=== PATIENT | male | born 1975 | race Caucasian/White ===

== ENCOUNTER 2018-07-06 09:59 | Emergency (ER) | payer MEDICARE ==
[2018-07-06 10:12] VITALS: BP 128/96; PULSE 90; O2SAT 99
--- NOTE | 2018-07-06 10:58 | ERPHSYRPT ---
- History of Present Illness Time Seen by Provider: 07/06/18 10:51 Source: patient Exam Limitations: no limitations Patient Subjective Stated Complaint: Got 3 teeth pulled on 07/02/2018 on the bottom back left and feels as if he has a bone sticking out Triage Nursing Assessment: Pt c/o of left lower mouth pain due to having 3 teeth pulled on 07/02/2018 and feels as if a bone is sticking out, vitals wnl, pulses normal, denies N&V, took Naproxen 500 mg this am, no other issues at this time Physician History: The patient is a 42-year-old male with his mother complaining of left lower jaw pain after having 3 teeth pulled from that area on 07/01/18. He took a naproxen this morning and is feeling better. He denies numbness or tingling. He denies fever. Timing/Duration: gradual onset, days (3) Severity: moderate ENT Location: dental Prearrival Treatment: over the counter meds Associated Symptoms: tooth pain, No fever, No chills Allergies/Adverse Reactions: No Known Drug Allergies Allergy (Verified 07/06/18 10:13) Home Medications: No Reportable Medications [No Reported Medications] 07/06/18 [History] Hx Tetanus, Diphtheria Vaccination/Date Given: Yes (PT STATES "BEEN AWHILE") Hx Influenza Vaccination/Date Given: No Hx Pneumococcal Vaccination/Date Given: No - Review of Systems Constitutional: No Fever, No Chills Eyes: No Symptoms Ears, Nose, & Throat: Other (tooth pain) Respiratory: No Cough, No Dyspnea Cardiac: No Chest Pain, No Edema, No Syncope Abdominal/Gastrointestinal: No Abdominal Pain, No Nausea, No Vomiting, No Diarrhea Genitourinary Symptoms: No Dysuria Musculoskeletal: No Back Pain, No Neck Pain Skin: No Rash Neurological: No Dizziness, No Focal Weakness, No Sensory Changes Psychological: No Symptoms Endocrine: No Symptoms Hematologic/Lymphatic: No Symptoms Immunological/Allergic: No Symptoms All Other Systems: Reviewed and Negative - Past Medical History Pertinent Past Medical History: Yes Musculoskeletal History: Other Other Medical History: "BAD BACK", 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 - Past Surgical History Past Surgical History: Yes Other Surgical History: bladder was on outside of body at several operations to this - Social History Smoking Status: Current every day smoker How long have you smoked: 30 Exposure to second hand smoke: Yes Drug Use: none Patient Lives Alone: No - Nursing Vital Signs Nursing Vital Signs: Initial Vital Signs Temperature 97.9 F 07/06/18 10:03 Pulse Rate 90 07/06/18 10:03 Blood Pressure 128/96 07/06/18 10:03 O2 Sat by Pulse Oximetry 99 07/06/18 10:03 Pain Scale Pain Intensity 8 - Physical Exam General Appearance: no apparent distress, alert Eye Exam: bilateral eye: PERRL, EOMI Ear Exam: bilateral ear: auricle normal Nasal Exam: normal inspection Throat Exam: dental tenderness (There is a surgical wound over the posterior lower mandible consistent with having 3 teeth recently extracted. There is bone exposed in the middle portion of the wound. There is mild tenderness to palpation.) Neck Exam: supple Cardiovascular/Respiratory Exam: normal breath sounds, regular rate/rhythm Abdominal Exam: non-tender, soft Neurologic Exam: alert, oriented x 3, sensation nml, No motor deficits Skin Exam: normal color, warm, dry SpO2 Interpretation: normal SpO2: 99 Oxygen Delivery: Room Air - Progress Progress: unchanged Progress Note: 07/06/18 11:01 I discussed with the patient the options that included giving a Toradol 60 mg IM injection and being sent home with 2 [place] tablets. I discussed with him that we did not have any clove oil or any analgesic gel to place into the dry socket. The patient adamantly refused the Toradol injection. He states that he will take the 2 [place] and use them later and will not come back today. He will see a dentist tomorrow. I also discussed with him that we tried to find treatment at other local ERs and were unable to. Counseled pt/family regarding: diagnosis, need for follow-up - Departure Time of Disposition: 11:03 Departure Disposition: Home Clinical Impression: Dry socket Condition: Stable Critical Care Time: No Referrals: DOCTOR,NO FAMILY [Primary Care Provider] - Additional Instructions: You have a dry socket from a recent extraction of teeth. You were offered a Toradol 60 mg IM injection and you've declined. You were given [place] 2 tablets the used one every 4-6 hours. We do not have the usual treatment for dry socket which includes clove oil. There is a 24 hour dentist open in [place] at [place], [address] Phone number [phone]. There is a 24 hour [facility] open on [address] [facility] in [place]. The phone number is . Follow-up with your dentist tomorrow area
[2018-07-06] MEDS ORDERED: NORCO 5/325 MG ONE (11:02)
[2018-07-06] MEDS ORDERED: NORCO 5/325 MG PO ONE (11:05)
== END 2018-07-06 11:15 | disposition home or self-care (01) ==
LOC: ED 09:59
DX: M27.3 Alveolitis of jaws (principal); Z98.818 Other dental procedure status
CPT/HCPCS: 99283; A9270-GY

== ENCOUNTER 2018-08-02 20:53 | Observation (INO) | payer MEDICARE ==
[2018-08-02] MEDS ORDERED: ANTIVERT 25 MG PO ONE (21:11)
[2018-08-02] MEDS ORDERED: Transderm Scop 1.5MG Patch TOP ONE (21:11)
[2018-08-02] MEDS ORDERED: BENADRYL 50 MG/ML IV ONE (21:14)
[2018-08-02] MEDS ORDERED: ANTIVERT 25 MG ONE (21:16)
[2018-08-02] MEDS ORDERED: BENADRYL 50 MG/ML ONE (21:23)
[2018-08-02] MEDS ORDERED: Sodium Chloride 0.9% 100 ML IVPB 100 ML IV ONE (21:30)
[2018-08-02 21:33] LABS: BASOPHIL % 0.4 % (0.0-0.4); Basophil (Absolute #) 0.04 (0-0.4); Eosinophil % 2.1 % (0.00-5.0); Eosinophil (Absolute #) 0.23 (0-0.5); Granulocytes % 49.5 % (36.0-66.0); Hematocrit 48.1 % (42-50); Hemoglobin 16.2 gm/dl (12.5-18.0); Lymphocyte (Absolute #) 4.01 (1.0-4.6); Lymphocytes % 37.3 % (24.0-44.0); Mean Cell Volume 91.6 fl (78-100); Mean Corpuscular Hemoglobin 30.9 pg (26-32); Mean Corpuscular Hgb Concent. 33.7 g/dl (32-36); Monocyte (Absolute #) 1.15 (0.0-1.3); Monocytes % 10.7 % (0.0-12.0); Platelet Count 335 K/mm3 (150-450); Red Blood Count 5.25 M/mm3 (4.1-5.6); Red Cell Distribution Width 13.4 % (11.5-14.0); White Blood Count 10.8 K/mm3 (4.0-10.5)
[2018-08-02 21:50] LABS: ANION GAP 13.4 MEQ/L (5-15); BLOOD UREA NITROGEN 25 mg/dL (9-20); CHLORIDE 101 mmol/L (98-107); Calcium 9.8 mg/dL (8.4-10.2); Carbon Dioxide 29 mmol/L (22-30); Creatinine 1 0.96 mg/dL (0.66-1.25); Glucose 104 mg/dL (74-106); Potassium 4.8 mmol/L (3.5-5.1); SODIUM 139 mmol/L (137-145)
--- NOTE | 2018-08-02 21:50 | ERPHSYRPT ---
- History of Present Illness Time Seen by Provider: 08/02/18 21:04 Source: patient, family Exam Limitations: no limitations Patient Subjective Stated Complaint: pt reports dizziness at rest, reports this started today as he was sitting. pt reports double vision. Triage Nursing Assessment: pt is aox3, pupils perrl, pt speech is clear, pt answers questions appropriately, hand dado operator are strong and equal, no facial droop noted, afebrile, resps easy and non labored, radial pulses strong and equal, abd soft non tender, cap refill < 3 seconds, no edema noted, pt skin pink warm dry. Physician History: patient developed acute dizziness today after suddenly getting up to go to the bathroom; he took 3-4 steps and became dizzy and unable to ambulate without holding on; no AVILA; no N&V; no fever or chills; no past hx; no tinnitis; some blurred and double vision now; no trauma; room spins if moves his head ; worse flexing and extending neck then rotating left right but mild then; otherwise healthy; here with family; no memory or speech problems; no weakness Timing/Duration: today, constant, sudden Severity: severe Character of Deficits: vision problems (double vision), other (vertigo and unable to ambulate without help) Deficits: cannot walk (vertigo), off balance Baseline/Normal Cognition: alert oriented x 3 Baseline Gait: unable to walk (without assitance or holding on due to vertigo) Associated Symptoms: trouble walking, vision changes (double vision), No fever, No chills, No loss of consciousness, No nausea, No vomiting, No weakness, No numbness/tingling in legs/feet, No ringing in ears, No seizures, No slurred speech, No chest pain, No headache Allergies/Adverse Reactions: No Known Drug Allergies Allergy (Verified 08/02/18 21:09) Home Medications: No Reportable Medications [No Reported Medications] 07/06/18 [History] Hx Tetanus, Diphtheria Vaccination/Date Given: No Hx Influenza Vaccination/Date Given: No Hx Pneumococcal Vaccination/Date Given: No Immunizations Up to Date: Yes - Review of Systems Constitutional: No Symptoms Eyes: Vision Changes, Double Vision, No Eye Pain, No Eye Redness, No Itchy Ears, Nose, & Throat: Other (has long hx of difficulty swallowing at time- supposed to have esophagus dilated - hasnt done it), No Ear Pain, No Tinnitus, No Nose Discharge, No Throat Pain, No Hoarse Respiratory: No Cough, No Dyspnea, No Wheezing Cardiac: No Chest Pain, No Palpitations, No Syncope Abdominal/Gastrointestinal: No Abdominal Pain, No Nausea, No Vomiting, No Diarrhea Genitourinary Symptoms: No Dysuria, No Incontinence, No Urinary Retention, No Flank Pain Musculoskeletal: No Symptoms Skin: No Symptoms Neurological: Dizziness, Vertigo, No Focal Weakness, No Headache, No Paralysis, No Parasthesia, No Seizure, No Sensory Changes, No Speech Changes Psychological: No Symptoms Endocrine: No Symptoms Hematologic/Lymphatic: No Symptoms Immunological/Allergic: No Symptoms - Past Medical History Pertinent Past Medical History: Yes Musculoskeletal History: Other Other Medical History: "BAD BACK", 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 - Past Surgical History Past Surgical History: Yes Other Surgical History: bladder was on outside of body at several operations to this - Social History Smoking Status: Current every day smoker How long have you smoked: 30 Exposure to second hand smoke: Yes Alcohol Use: Socially Drug Use: none Patient Lives Alone: No Significant Family History: no pertinent family hx - Female History Hx Now: No - Nursing Vital Signs Nursing Vital Signs: Initial Vital Signs Temperature 97.8 F 08/02/18 20:58 Pulse Rate 84 08/02/18 20:58 Respiratory Rate 18 08/02/18 20:58 Blood Pressure 131/85 08/02/18 20:58 O2 Sat by Pulse Oximetry 98 08/02/18 20:58 Pain Scale Pain Intensity 0 - Ysabel Coma Scale Best Eye Response (Ysabel): (4) open spontaneously Best Verbal Response (Ysabel): (5) oriented Best Motor Response (Ysabel): (6) obeys commands Ysabel Total: 15 - Physical Exam General Appearance: mild distress, alert, anxiety Eye Exam: bilateral eye: normal inspection, PERRL, EOMI, vision changes (double vision), other (fundi benign; no papaledema noted) Ears, Nose, Throat Exam: TMs normal, pharynx normal, moist mucous membranes Neck Exam: normal inspection, non-tender, supple, full range of motion, other ( symptoms of vertigo exacerbated by A_P motion more then L-R rotation), No meningismus, No carotid bruit, No JVD Respiratory: normal breath sounds, lungs clear, airway intact, No chest tenderness, No respiratory distress, No crackles/rales, No rhonchi, No wheezing Cardiovascular: regular rate/rhythm, normal heart sounds, normal peripheral pulses, capillary refill <2 sec, No murmur, No edema Gastrointestinal: soft, normal bowel sounds, No tenderness, No guarding, No rebound, No organomegaly Rectal Exam: deferred Back Exam: normal inspection, normal range of motion, No CVA tenderness, No vertebral tenderness, No decreased range of motion, No muscle spasm, No point tenderness Extremity Exam: normal inspection, normal range of motion, No nikolas's sign, No pedal edema Peripheral Pulses: carotid (R): 4+, carotid (L): 4+, femoral (R): 4+, femoral (L ): 4+, dorsalis-pedis (R): 3+, dorsalis-pedis (L): 3+ Mental Status: alert, oriented x 3, cooperative, agitated system software developer Exam: normal hearing, normal speech, PERRL, abnormal eye position (slight dysconjugate at times; no nystagmus noted), tongue midline Coordination/Gait: normal finger to nose, negative Romberg's sign, No normal gait, No normal cerebellar function Motor/Sensory: no motor deficit, no sensory deficit, no pronator drift DTR: knee (R): 4+, knee (L): 4+ Skin Exam: normal color, warm, dry, No rash SpO2 Interpretation: normal SpO2: 98 O2 Delivery: Room Air - Course Nursing assessment & vital signs reviewed: Yes EKG Interpreted by Me: RATE (79), Sinus Rhythm, NORMAL AXIS, NORMAL INTERVALS, NORMAL QRS, NORMAL ST-T Rhythm Strip: Rate (80), Normal Sinus Rhythm - Radiology Exams Chest X-ray Interpretation: Interpreted by me, Negative, No Pneumonia, Nml Heart Size , No Infiltrates - CT Exams Head CT Interpretation: Negative, Tele-radiologist Report, No/Intracranial Hemorrhag Ordered Tests: Active Orders 24 hr Category Date Time Status Bedrest ROUTINE Activity 08/02/18 22:40 Ordered Up With Assistance ROUTINE Activity 08/02/18 22:38 Ordered Accucheck STAT Care 08/02/18 21:11 Active Call Admit Doctor for Orders ON ADMISSION Care 08/02/18 22:39 Ordered Production Sampler STAT Care 08/02/18 21:12 Active Code Status Order ROUTINE Care 08/02/18 22:38 Ordered EKG-ER Only STAT Care 08/02/18 21:11 Active Fall Protocol ROUTINE Care 08/02/18 22:40 Ordered IV Care Q6H Care 08/02/18 22:38 Ordered IV Insertion STAT Care 08/02/18 21:11 Active Neuro Checks Q4H Care 08/02/18 22:38 Ordered Orthostatic Vital Signs STAT Care 08/02/18 21:[address] in Observation ROUTINE Care 08/02/18 22:38 Ordered Cipriano Amadoue, Apply ROUTINE Care 08/02/18 22:38 Ordered Telemetry q6h Care 08/02/18 22:38 Ordered Cardiac Diet Diet 08/02/18 Breakfast Ordered CHEST 1 VIEW (PORTABLE) Stat Exams 08/02/18 21:12 Taken HEAD WITHOUT CONTRAST [CT] Stat Exams 08/02/18 21:12 Taken BMP Stat Lab 08/02/18 21:20 Completed CBC W DIFF Stat Lab 08/02/18 21:20 Completed ETHYL ALCOHOL Stat Lab 08/02/18 21:20 Completed UA W/RFX UR CULTURE Stat Lab 08/02/18 22:10 Received Urine Triage Profile Stat Lab 08/02/18 22:10 Received Transfer Order Routine Transfer 08/02/18 Ordered Medication Summary Generic Name Dose Route Start Last Admin Trade Name Freq PRN Reason Stop Dose Admin Sodium Chloride 1,000 mls @ 100 mls/hr 08/02/18 21:15 08/02/18 22:19 Sodium Chloride 0.9% 1000 Ml IV 09/01/18 21:14 100 mls/hr .Q10H [place] Administration Discontinued Medications Generic Name Dose Route Start Last Admin Trade Name Freq PRN Reason Stop Dose Admin Diphenhydramine HCl 25 mg 08/02/18 21:14 08/02/18 21:53 Benadryl 50 Mg/Ml IV 08/02/18 21:15 25 mg STAT ONE Administration Diphenhydramine HCl Confirm 08/02/18 21:23 Benadryl 50 Mg/Ml Administered 08/02/18 21:24 Dose 50 mg .ROUTE .STK-MED ONE Sodium Chloride 500 mls @ 999 mls/hr 08/02/18 21:13 08/02/18 22:40 Sodium Chloride 0.9% 1000 Ml IV 08/02/18 21:43 Infused .Q31M STA Infusion Sodium Chloride Confirm 08/02/18 21:30 Sodium Chloride 0.9% 100 Ml Ivpb Administered 08/02/18 21:31 Dose 100 mls @ ud IV .STK-MED ONE Meclizine HCl 25 mg 08/02/18 21:11 08/02/18 21:20 Antivert 25 Mg PO 08/02/18 21:12 25 mg STAT ONE Administration Meclizine HCl Confirm 08/02/18 21:16 Antivert 25 Mg Administered 08/02/18 21:17 Dose 25 mg .ROUTE .STK-MED ONE Scopolamine HBr 1.5 mg 08/02/18 21:11 08/02/18 21:23 Transderm Scop 1.5mg Patch TOP 08/02/18 21:12 1.5 mg STAT ONE Administration Lab/Rad Data: Laboratory Result Diagrams 08/02/18 21:20 08/02/18 21:20 Laboratory Results 08/02/18 08/02/18 Range/Units 21:20 21:20 WBC 10.8 H (4.0-10.5) K/mm3 RBC 5.25 (4.1-5.6) M/mm3 Hgb 16.2 (12.5-18.0) gm/dl Hct 48.1 (42-50) % MCV 91.6 (78-100) fl MCH 30.9 (26-32) pg MCHC 33.7 (32-36) g/dl RDW 13.4 (11.5-14.0) % Plt Count 335 (150-450) K/mm3 MPV 10.0 H (6-9.5) fl Gran % 49.5 (36.0-66.0) % Eos # (Auto) 0.23 (0-0.5) Absolute Lymphs (auto) 4.01 (1.0-4.6) Absolute Monos (auto) 1.15 (0.0-1.3) Lymphocytes % 37.3 (24.0-44.0) % Monocytes % 10.7 (0.0-12.0) % Eosinophils % 2.1 (0.00-5.0) % Basophils % 0.4 (0.0-0.4) % Absolute Granulocytes 5.33 (1.4-6.9) Basophils # 0.04 (0-0.4) Sodium 139 (137-145) mmol/L Potassium 4.8 (3.5-5.1) mmol/L Chloride 101 (98-107) mmol/L Carbon Dioxide 29 (22-30) mmol/L Anion Gap 13.4 (5-15) MEQ/L BUN 25 H (9-20) mg/dL Creatinine 0.96 (0.66-1.25) mg/dL Estimated GFR > 60.0 ML/MIN Glucose 104 (74-106) mg/dL Calcium 9.8 (8.4-10.2) mg/dL Ethyl Alcohol < 10 (0-10) mg/dL reviewed - Progress Progress: improved (after meds and IV fluids), re-examined (after meds and ct) Progress Note: 08/02/18 21:57 will give IV fluids, meds ; lab and ct and ekg and recheck; family at bedside 08/02/18 22:10 CT; EKG; CXR and labs all ok; recheck and symptoms reolving; moves his head well ; double vision resolved; OSVS ok; slightly symptomatic standing only; will ambulate and recheck; family at bedside 08/02/18 22:36 recheck; symptoms resolved at rest; reoccur when stand and exacerbate wehn try to ambulate; Dr Medina consulted and will place in obs; family notified Discussed with : Jg (consulted and will place in obs) Will see patient in: hospital (observation) Counseled pt/family regarding: lab results, diagnosis, need for follow-up, rad results - Departure Time of Disposition: 22:37 Departure Disposition: Observation Clinical Impression: Acute severe vertigo, Unable to ambulate Condition: Stable Critical Care Time: No Referrals: DOCTOR,NO FAMILY [Primary Care Provider] - RUPAL MEDINA [ACTIVE STAFF] - Instructions: Vertigo (a Type of Dizziness) (DC)
[2018-08-02 21:53] LABS: ETHYL ALCOHOL < 10 mg/dL (0-10)
[2018-08-02] MEDS: Sodium Chloride 0.9% 1000 ML 1,000 ML IV SCH (22:19)
[2018-08-02 22:33] LABS: Amphetamine,Urine NEGATIVE (NEGATIVE); Barbiturate,Urine NEGATIVE (NEGATIVE); Benzodiazepine,Urine NEGATIVE (NEGATIVE); Cocaine,Urine NEGATIVE (NEGATIVE); Methadone,Urine NEGATIVE (NEGATIVE); Opiate,Urine NEGATIVE (NEGATIVE); THC,Urine NEGATIVE (NEGATIVE)
[2018-08-02] MEDS ORDERED: ANTIVERT 25 MG PO PRN (22:40)
[2018-08-02 22:41] LABS: Appearance CLEAR (CLEAR); Bilirubin NEGATIVE (NEGATIVE); Blood MODERATE Ery/ul (0-5); Epithelial Cells RARE /HPF (FEW); Glucose NEGATIVE (NEGATIVE); Ketones NEGATIVE (NEGATIVE); Leukocyte Esterase MODERATE (NEGATIVE); Nitrite NEGATIVE (NEGATIVE); PCP,Urine NEGATIVE (NEGATIVE); Protein,Urine Dip NEGATIVE (Negative); RBC 26-50 /HPF (0-2); Specific Gravity 1.026 (1.005-1.025); Urobilinogen NEGATIVE mg/dL (0-1); WBC 26-50 /HPF (0-5)
[2018-08-02] MEDS ORDERED: Sodium Chloride 0.9% 1000 ML 1,000 ML IV SCH (22:45)
[2018-08-03] MEDS: Sodium Chloride 0.9% 1000 ML 1,000 ML IV SCH ×2 (02:42→12:21)
--- NOTE | 2018-08-03 08:44 | XRAY ---
Indication: Acute vertigo. Comparison: April 10, 2009. Portable chest demonstrates normal heart and lungs. Bony thorax intact. No new/acute findings.
--- NOTE | 2018-08-03 08:44 | XRAY ---
Indication: Acute vertigo. Multiple contiguous axial images obtained through the head without contrast. Comparison: None Several images through the base of the brain slightly degraded by motion artifact. Ventriculosulcal pattern appears symmetric. No acute intracranial hemorrhage, abnormal extra-axial fluid collection, or mass effect. Fourth ventricle is midline without hydrocephalus. Hcurch-white matter differentiation preserved. Bony calvarium intact. Visualized paranasal sinuses and mastoid air cells are clear. Impression: Mild motion artifact. No gross acute intracranial abnormalities. CT DI 68.98
[2018-08-03] MEDS ORDERED: TYLENOL 325 MG PO PRN (09:09)
[2018-08-03] MEDS ORDERED: ANTIVERT 25 MG PO PRN (09:16)
[2018-08-03] MEDS ORDERED: Transderm Scop 1.5MG Patch TOP ONE (09:16)
--- NOTE | 2018-08-03 14:23 | HP ---
HISTORY OF PRESENT ILLNESS: This is a 42 year-old patient who does not have a physician who presented to the emergency department. He reports he had developed extreme dizziness when he got up to ambulate to the bathroom. He was unable to walk. He has not had this problem before. He states that when he sits up he feels lightheaded. He lives at home with his parents. He denies any falls or any trauma to his head. He reported he had double vision in the emergency room but reports that this is gone now. He reports he has been up to the bathroom with the help of his nurse today. He was admitted from the emergency room as he was unable to ambulate even after being given meclizine and scopolamine patch and further monitoring. REVIEW OF SYSTEMS: No nausea or vomiting. He reports he always has a cough. No fever. No rhinorrhea. No abdominal pain. Otherwise review of systems is negative. PAST MEDICAL HISTORY: Asthma, gastroesophageal reflux. PAST SURGICAL HISTORY: He reports bladder surgery as an . Hip surgery. 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 MEDICATIONS: None. ALLERGIES: NKDA. SOCIAL HISTORY: He lives with his mother and father. He smokes one-half pack per day. He is cutting back on tobacco. He denies any alcohol or illicit drug use. FAMILY HISTORY: Noncontributory. PHYSICAL EXAMINATION: VITAL SIGNS: Temperature current 98.3F, temperature max 98.3F, heart rate 77 to 85, respiratory rate 12 to 18, blood pressure 95 to 131 over 55 to 85 currently 96/59. Oxygen saturation 94 to 98% on room air. GENERAL: The patient is a pleasant talkative man sitting up in no acute distress. CVS: He has a regular rate and rhythm. No murmurs, gallops or rubs. CHEST: Clear to auscultation bilaterally. No crackles or wheezes. ABDOMEN: Soft, nontender, nondistended with normal bowel sounds. EXTREMITIES: No clubbing, cyanosis or edema. SKIN: Warm, dry and intact. HEENT: Ears are normal without any erythema. No fluid behind tympanic membranes. Mouth is moist without any erythema of the pharynx. NEURO: Cranial nerves II-XII intact. Strength 5/5 in all four extremities. He has normal finger to nose and heel to ryan. LABORATORY DATA AND TESTS: His white blood cell count was 10,800 on admission. BMP was within normal limits. UA had 26 to 50 white blood cells, 26 to 50 red blood cells, no bacteria. Urine culture was sent. Urine tox was negative. CT scan of his head was read as mild motion artifact. No gross acute intracranial abnormalities. Chest x-ray portable was read as no acute abnormalities. Please see the radiologist report for both of these. ASSESSMENT AND PLAN: 1) ACUTE BENIGN PAROXYSMAL POSITIONAL VERTIGO: Will continue with meclizine as needed and Scopolamine patch. I have asked PT to see him. If he is able to ambulate safely, we may be able to discharge him later today otherwise he may need to stay another night for continued monitoring and treatment. 2) HISTORY OF ASTHMA: He is asking for a refill on his Albuterol HFA. 3) HISTORY OF GASTROESOPHAGEAL REFLUX DISEASE: He is asking for a refill of his medications for his stomach but cannot remember the name of this.
--- NOTE | 2018-08-03 15:15 | PCM.DCORD ---
- Discharge Discharge Date: 08/03/18 Disposition: Home, Self-Care Condition: Good Prescriptions: New Meclizine HCl 25 mg [Antivert 25 mg] 25 mg PO Q6H PRN PRN #20 tablet PRN Reason: Dizziness Albuterol Sulfate [Proventil Hfa] 2 puffs IH Q4H PRN #1 hfa.[id number].[id number] PRN Reason: Shortness Of Breath/Wheezing Ranitidine HCl 150 mg PO BID #60 tablet Scopolamine 1.5 mg Patch [Transderm Scop 1.5MG Patch] 1.5 mg TD Q72H # 2 patch Follow up with: RUPAL MEDINA [ACTIVE STAFF] - 08/04/18 10:30 am
[2018-08-03 15:57] VITALS: BP 114/65; PULSE 64; O2SAT 95
== END 2018-08-03 18:05 | disposition home or self-care (01) ==
LOC: ED 20:53 → MED SURG 23:04
PROVIDERS: ADMIT Internal Medicine; ATTEND Internal Medicine
DX: H81.10 Benign paroxysmal vertigo, unspecified ear (principal); Z87.09 Personal history of other diseases of the respiratory system; Z87.19 Personal history of other diseases of the digestive system
CPT/HCPCS: 36000; 36415; 70450; 71045; 80048; 80307; 81001; 82962; 85025; 87086; 93005; 93041; 93268; 96360; 96374; 97161; 99284; G0378; G0480; 96375; 99285; J1200; A9270-GY

== ENCOUNTER 2018-10-10 19:20 | Emergency (ER) | payer MEDICARE ==
[2018-10-10 19:34] VITALS: BP 118/87; PULSE 67; O2SAT 97
[2018-10-10] MEDS ORDERED: Rocephin 500 MG INJ IM ONE (19:48)
[2018-10-10] MEDS ORDERED: Vibramycin 100 MG PO ONE (19:48)
[2018-10-10] MEDS ORDERED: Rocephin 500 MG INJ ONE (19:53)
[2018-10-10] MEDS ORDERED: Vibramycin 100 MG ONE (19:53)
--- NOTE | 2018-10-10 19:55 | ERPHSYRPT ---
- History of Present Illness Time Seen by Provider: 10/10/18 19:49 Source: patient Exam Limitations: no limitations Patient Subjective Stated Complaint: pt states he ws recently sexually active with a woman who was diagnosed with PID and wants to be checked. Triage Nursing Assessment: pt alert and oriented, asnwers questions approp. pt ambulatory with steady gait noted. respirations nonlabored. skin pink warm and dry. pt denies any difficulty urinating or pain with urination. Physician History: 42-year-old white male arrives with complaint that he has had sex with a woman who was told that she had PID he is worried that he might have a sexually transmitted disease. He has not had any symptoms. Past medical history GERD, chronic back problems, multiple bladder surgeries Timing/Duration: other (recent contact with woman who has PID) Severity: mild Modifying Factors: Improves With: nothing Associated Symptoms: denies symptoms Allergies/Adverse Reactions: No Known Drug Allergies Allergy (Verified 10/10/18 19:38) Hx Tetanus, Diphtheria Vaccination/Date Given: No Hx Influenza Vaccination/Date Given: No Hx Pneumococcal Vaccination/Date Given: No Immunizations Up to Date: No - Review of Systems Constitutional: No Fever, No Chills Eyes: No Symptoms Ears, Nose, & Throat: No Symptoms Respiratory: No Cough, No Dyspnea Cardiac: No Chest Pain, No Edema, No Syncope Abdominal/Gastrointestinal: No Abdominal Pain, No Nausea, No Vomiting, No Diarrhea Genitourinary Symptoms: Other (recent contact with woman diagnosed with PID), No Dysuria Musculoskeletal: No Back Pain, No Neck Pain Skin: No Rash Neurological: No Dizziness, No Focal Weakness, No Sensory Changes Psychological: No Symptoms Endocrine: No Symptoms All Other Systems: Reviewed and Negative - Past Medical History Pertinent Past Medical History: Yes Neurological History: No Pertinent History ENT History: No Pertinent History Cardiac History: No Pertinent History Respiratory History: Asthma Endocrine Medical History: No Pertinent History Musculoskeletal History: No Pertinent History, Other GI Medical History: GERD History: No Pertinent History Psycho-Social History: No Pertinent History Male Reproductive Disorders: No Pertinent History Other Medical History: "BAD BACK", 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 - Social History Smoking Status: Current every day smoker How long have you smoked: 30 Exposure to second hand smoke: Yes Alcohol Use: Socially Drug Use: marijuana Patient Lives Alone: No Significant Family History: no pertinent family hx - Nursing Vital Signs Nursing Vital Signs: Initial Vital Signs Temperature 97.3 F 10/10/18 19:27 Pulse Rate 67 10/10/18 19:27 Respiratory Rate 18 10/10/18 19:27 Blood Pressure 118/87 10/10/18 19:27 O2 Sat by Pulse Oximetry 97 10/10/18 19:27 Pain Scale Pain Intensity 0 - Physical Exam General Appearance: no apparent distress Eye Exam: PERRL/EOMI, eyes nml inspection Ears, Nose, Throat Exam: normal ENT inspection, TMs normal, pharynx normal, moist mucous membranes Neck Exam: normal inspection, non-tender, supple, full range of motion Respiratory Exam: normal breath sounds, lungs clear, No respiratory distress Cardiovascular Exam: regular rate/rhythm, capillary refill <2 sec Gastrointestinal/Abdomen Exam: soft, normal bowel sounds, other (multiple well- healed scars suprapubic region), No tenderness, No distention, No mass, No guarding Male Genitalia Exam: normal genitalia Back Exam: normal inspection, normal range of motion, No CVA tenderness, No vertebral tenderness Extremity Exam: normal inspection, normal range of motion, pelvis stable Neurologic Exam: alert, oriented x 3, cooperative, ict project manager II-XII nml as tested, normal mood/affect, nml cerebellar function, nml station & gait, sensation nml, No motor deficits Skin Exam: normal color, warm, dry, No rash Lymphatic Exam: No adenopathy SpO2 Interpretation: normal (97%) SpO2: 97 - Course Nursing assessment & vital signs reviewed: Yes Ordered Tests: Medication Summary Generic Name Dose Route Start Last Admin Trade Name Freq PRN Reason Stop Dose Admin Ceftriaxone Sodium 500 mg 10/10/18 19:48 Rocephin 500 Mg Inj IM 10/10/18 19:49 STAT ONE Doxycycline Hyclate 100 mg 10/10/18 19:48 Vibramycin 100 Mg PO 10/10/18 19:49 STAT ONE - Progress Progress: improved Progress Note: 10/10/18 19:52 42-year-old white male arrives with concern that he has had sexual contact with a woman diagnosed with PID he is worried about sexually transmitted diseases. He denies any symptoms no drainage no lesions. GC chlamydia urine have been ordered. RPR has been ordered. Patient will be given Rocephin 500 mg IM./ Doxycycline 100 mg orally twice a day for 10 days. Patient urged to use protection. - Departure Departure Disposition: Home Clinical Impression: Possible exposure to STD Condition: Fair Critical Care Time: No Referrals: DOCTOR,NO FAMILY [Primary Care Provider] - Additional Instructions: Return home. Doxycycline 100 mg orally twice a day for 10 days. Use protection for example condoms. Follow-up with your family doctor. Return for acute distress or for severe symptoms. Prescriptions: Doxycycline Hyclate 100 mg [Vibramycin 100 MG] 100 mg PO BID #20 tab
[2018-10-10 21:32] LABS: CHLAMYDIA URINE NEGATIVE (NEGATIVE); GC URINE NEGATIVE (NEGATIVE)
[2018-10-12 14:51] LABS: RPR Screen Non Reactive (Non Reactive)
== END 2018-10-10 20:19 | disposition home or self-care (01) ==
LOC: ED 19:20
DX: Z20.2 Contact with and (suspected) exposure to infections with a predominantly sexual mode of transmission (principal)
CPT/HCPCS: 36415; 86592; 86593; 86780; 87491; 87591; 96372; 99284; J0696; A9270-GY

== ENCOUNTER 2021-01-20 19:15 | Emergency (ER) | payer MEDICARE ==
[2021-01-20] MEDS ORDERED: Floxin Otic 5 ML OT ONE (19:37)
[2021-01-20 19:38] VITALS: BP 124/93; PULSE 84
[2021-01-20 19:42] VITALS: O2SAT 95
--- NOTE | 2021-01-20 19:42 | ERPHSYRPT ---
- History of Present Illness Time Seen by Provider: 01/20/21 19:37 Source: patient, family Exam Limitations: no limitations Physician History: 45 years old presented to the ER with chief complaint of right earache since yesterday evening, moderate intensity dull aching to sharp without any significant aggravating or relieving factors. Patient denies any discharge decreased hearing. No URI symptoms. Timing/Duration: abrupt onset, yesterday Severity: moderate ENT Location: ear (R) Prearrival Treatment: over the counter meds Associated Symptoms: ear pain (R), No change in hearing, No ear drainage, No facial pain/swelling, No headache, No hearing loss, No jaw pain, No motion sickness, No nasal foreign body, No neck pain, No poor fluid intake, No poor solids intake, No ringing of ears, No swollen glands, No sinus infection, No sore throat, No tooth pain, No difficulty swallowing, No voice change Allergies/Adverse Reactions: No Known Drug Allergies Allergy (Verified 01/20/21 19:22) Home Medications: No Reportable Medications [No Reported Medications] 01/20/21 [History] Hx Tetanus, Diphtheria Vaccination/Date Given: No Hx Influenza Vaccination/Date Given: No Hx Pneumococcal Vaccination/Date Given: No - Review of Systems Constitutional: No Symptoms Eyes: No Symptoms Ears, Nose, & Throat: Ear Pain Respiratory: No Symptoms Cardiac: No Symptoms Abdominal/Gastrointestinal: No Symptoms Musculoskeletal: No Symptoms Skin: No Symptoms Neurological: No Symptoms Psychological: No Symptoms Endocrine: No Symptoms Hematologic/Lymphatic: No Symptoms Immunological/Allergic: No Symptoms - Past Medical History Pertinent Past Medical History: Yes Neurological History: No Pertinent History ENT History: No Pertinent History Cardiac History: No Pertinent History Respiratory History: Asthma Endocrine Medical History: No Pertinent History Musculoskeletal History: No Pertinent History, Other GI Medical History: GERD History: No Pertinent History Psycho-Social History: No Pertinent History Male Reproductive Disorders: No Pertinent History Other Medical History: "BAD BACK", 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 - Social History Smoking Status: Current every day smoker How long have you smoked: 30 Exposure to second hand smoke: Yes Alcohol Use: Socially Drug Use: marijuana Patient Lives Alone: No Significant Family History: no pertinent family hx - Physical Exam General Appearance: no apparent distress, alert Eye Exam: bilateral eye: normal inspection, PERRL, EOMI Ear Exam: right ear: erythema (Diffuse erythema of canal), swelling (Canal), tenderness (Pain with movements of pinna. No mastoid tenderness), left ear: canal normal, bilateral ear: auricle normal, TM normal Nasal Exam: normal inspection, active bleeding Throat Exam: normal, pharynx normal, No dental tenderness Neck Exam: normal inspection, non-tender, supple, full range of motion Cardiovascular/Respiratory Exam: normal breath sounds, regular rate/rhythm Neurologic Exam: alert, oriented x 3, cooperative, regulatory affairs specialist II-XII nml as tested Skin Exam: normal color SpO2 Interpretation: normal SpO2: 95 O2 Delivery: Room Air Ordered Tests: Medication Summary Generic Name Dose Route Start Last Admin Trade Name Agueda PRN Reason Stop Dose Admin Ofloxacin 5 ml 01/20/21 19:37 Floxin Otic 5 Ml OT 01/20/21 19:38 STAT ONE - Progress Progress: unchanged Progress Note: 01/20/21 19:40 Has otitis externa, started on ofloxacin. Recommended Tylenol ibuprofen for sy mptomatic relief. Outpatient follow-up. Counseled pt/family regarding: diagnosis, need for follow-up - Departure Departure Disposition: Home Clinical Impression: Otitis externa Qualifiers: Otitis externa type: diffuse Chronicity: acute Laterality: right Qualified Code(s): H60.311 - Diffuse otitis externa, right ear Condition: Stable Critical Care Time: No Referrals: NOY MONTESINOS MD [Primary Care Provider] - Follow Up with PCP/3 days Instructions: Outer Ear Infection (DC) Additional Instructions: Use 10 drops right ear daily given to you. Use it for 5 to 7 days. Follow-up with primary care for reevaluation. Take Tylenol/ibuprofen as needed for symptomatic relief. Return to ER for worsening pain, decreased hearing, discharge etc.
== END 2021-01-20 20:31 | disposition home or self-care (01) ==
LOC: ED 19:15
DX: H60.311 Diffuse otitis externa, right ear (principal)
CPT/HCPCS: 99283; A9270-GY

== ENCOUNTER 2021-04-08 09:51 | Day surgery (SDC) | payer MEDICARE ==
[~2021-04-08 09:51] MED LIST: Lactated Ringers 1,000 ML IV SCH
[2021-04-08] MEDS ORDERED: Lactated Ringers 1,000 ML IV ONE (10:26)
[2021-04-08] MEDS ORDERED: DIPRIVAN 200 MG/20 ML IV ONE (12:00)
[2021-04-08] MEDS ORDERED: Versed 2 MG/2 ML Injection ONE (12:00)
--- NOTE | 2021-04-08 12:04 | HP ---
THIS REPORT WAS AMENDED ON 04/11/2021. PROCEDURE DATE: 04/08/2021 HISTORY OF PRESENT ILLNESS: The patient is a 45 y/o with some right upper quadrant aches and pains, comes and goes. Ultrasound showed some wall thickening of the gallbladder. Ejection fraction was 46% on HIDA scan. CURRENT MEDICATIONS: Naprosyn, cefdinir, Albuterol, Nexium, and some Pepcid. ALLERGIES: NKDA. 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 PAST MEDICAL HX: Asthma. FAMILY HISTORY: Hypertension. SOCIAL HISTORY: 1 pack per day. Denies alcohol abuse. REVIEW OF SYSTEMS: 14 systems reviewed. No chest pain or palpitations. Other systems negative or noncontributory other than above and per preadmission questionnaire. PHYSICAL EXAMINATION: GENERAL: No acute distress. HEENT: Anicteric sclerae. NECK: No JVD. CHEST: Clear, nonlabored breathing. CVS: Regular rate and rhythm. ABDOMEN: Soft. No peritoneal signs. EXTREMITIES: No significant edema. NEURO: Alert, moving extremities symmetrically. PSYCH: Appropriate mood and affect. IMPRESSION: HE HAS HAD SOME BOWEL ACHES, UNCLEAR ETIOLOGY. HE DOES HAVE SLIGHT THICKENING OF THE GALLBLADDER ON ULTRASOUND. HOWEVER, HIS HIDA IS 46%. DISCUSSED THE OPTIONS WITH THE PATIENT AND CONSIDERING RULING OUT OTHER CAUSES OF HIS SYMPTOMS SUCH GASTRITIS, ESOPHAGITIS, ULCER DISEASE OR OTHER ETIOLOGY AND CONSIDER WHETHER HE WOULD BENEFIT FROM CHOLECYSTECTOMY OR NOT. He agreed with the plan. Will proceed with upper endoscopy, possible biopsy, and if any narrowed area noted possible balloon dilatation. Risks of bleeding or infection; risk of bowel injury or perforation discussed, risk of incomplete exam possibly requiring other studies or procedures; risk of anesthesia or sedation; risk of inability to diagnosis etiology of his symptoms and possible need for readdressing consideration of cholecystectomy, but not limited to. He understands and agrees to the planned procedure. Will proceed with EGD with possible biopsy, if narrowed area noted, possible dilatation, as an outpatient under MAC anesthesia.
[2021-04-08 13:35] VITALS: O2SAT 97
[2021-04-08 13:38] VITALS: BP 120/81; PULSE 89
--- NOTE | 2021-04-09 12:27 | OP ---
SURGERY DATE: 04/08/2021 SURGERY TIME: 1206 PREOPERATIVE DIAGNOSIS: 1. HISTORY OF RIGHT UPPER QUADRANT EPIGASTRIC PAIN. 2. HISTORY OF NORMAL HIDA SCAN EJECTION FRACTION OF 46%. POSTOPERATIVE DIAGNOSIS: 1. MODERATE EROSIVE DISTAL ESOPHAGITIS. 2. MILD GASTRITIS. 3. SLIGHT HIATAL HERNIA. PROCEDURE: 1. Esophagogastroduodenoscopy with cold biopsy of small bowel for celiac sprue. 2. Cold biopsy of the antrum to evaluate for Helicobacter pylori. 3. Multiple cold biopsies distal esophagus for path. 4. Cold biopsies mid esophagus to evaluate for eosinophilic esophagitis. SURGEON: Dr. Mick Ortiz. ANESTHESIA: MAC. ESTIMATED BLOOD LOSS: Minimal. INDICATIONS: As noted above. Risks and benefits explained in detail, but not limited to. Consent obtained. DESCRIPTION OF PROCEDURE AND FINDINGS: The patient was taken to the endoscopy room. MAC anesthesia induced after official time-out for planned procedure. Bite block positioned. Video gastroscope easily passed down the esophagus through the patent pylorus to the 3rd portion of the duodenum. The 3rd, 2nd, and 1st portion of the duodenum grossly unremarkable. Given his symptom complaints, cold biopsy was taken to evaluate for celiac sprue. Good hemostasis noted. The scope pulled back in the stomach. Had some mild gastric erythema and possibly some minimal to mild gastritis. Cold biopsy was taken to evaluate for Helicobacter pylori. Good hemostasis noted. Otherwise, no signs of any ulcers, polyps, or other masses in the stomach. On retroflex, there was just a very slight weakness 0.5 cm-1 cm around the scope consistent with a very slight hiatal hernia. The scope was straightened. Gastroesophageal junction about 40 cm. The patient had about a 2.5-3 cm distal esophagus erosion, erosive esophagitis. No gross mass appearing. Multiple cold biopsies taken to evaluate for path. Good hemostasis was noted. Otherwise, the scope was pulled up to the mid esophagus. There was a little bit of sawtoothing of the mucosa. Cold biopsy was taken to evaluate for eosinophilic esophagitis. Otherwise, no signs of any obvious masses. The patient tolerated the procedure well. There were no immediate complications.
== END 2021-04-08 13:41 | disposition home or self-care (01) ==
LOC: SDC 09:51 → EDSTATUS 14:09
PROVIDERS: ATTEND Surgery
DX: K22.10 Ulcer of esophagus without bleeding (principal); K29.70 Gastritis, unspecified, without bleeding; K44.9 Diaphragmatic hernia without obstruction or gangrene; Z79.899 Other long term (current) drug therapy
CPT/HCPCS: 88305; 88312; J2250; J2704

== ENCOUNTER 2021-07-15 09:55 | Day surgery (SDC) | payer MEDICARE ==
--- NOTE | 2021-07-15 08:41 | HP ---
DATE OF SURGERY: 07/15/2021 HISTORY OF PRESENT ILLNESS: The patient is a 45-year-old with persistent right upper quadrant pain. It comes and goes. No recent colonoscopy. Family history negative for colon cancer. No bloody stools. No current change in bowel movement. PAST MEDICAL HISTORY: Chronic obstructive pulmonary disease, gastroesophageal reflux disease, asthma. PAST SURGICAL HISTORY: Hip surgery. 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 MEDICATIONS: Famotidine, esomeprazole, Albuterol sulfate, Cefdinir, Naprosyn. ALLERGIES: NKDA. FAMILY HISTORY: Hypertension. Negative for colon cancer. SOCIAL HISTORY: Half pack per day smoker, denies alcohol abuse. REVIEW OF SYSTEMS: Fourteen systems reviewed. He has had some reflux and chronic diarrhea, chronic obstructive pulmonary disease. No chest pain or palpitations. He has had normal ejection fraction 46% on HIDA scan. He had no evidence of any stones on ultrasound reportedly. Other systems negative or noncontributory as above and per preadmission questionnaire. PHYSICAL EXAMINATION: GENERAL: No acute distress. HEENT: Sclerae nonicteric. NECK: No JVD. CHEST: Equal excursion, nonlabored breathing. CVS: Regular rate and rhythm. ABDOMEN: Some right side abdominal aches. EXTREMITIES: No significant edema. NEURO: Alert, moving extremities symmetrically. No gross motor deficits noted. RECTAL: Deferred timed to endoscopy exam. PSYCH: Appropriate mood and affect. IMPRESSION: Some right side abdominal aches. Ultrasound showed no stones. HIDA normal ejection fraction. Unclear etiology. He has already had upper endoscopy in the past. He has had some persistent aches and pains. No big ulcers on his upper endoscopy in the right upper quadrant. I feel he will benefit from colonoscopy. He has not had a recent colonoscopy to rule out colitis or other etiology. If that is negative, he may need consideration for endoscopic ultrasound. Otherwise general risk of procedure for colonoscopy bleeding or infection, risk of bowel injury or perforation possibly requiring open procedure, risk of missed or nondiagnosis or incomplete exam possibly requiring barium enema, general risk of anesthesia or sedation, risk of bowel prep but not limited to. Consent obtained. He has some persistent abdominal pain, normal ultrasound negative for stones and HIDA with normal ejection fraction and upper endoscopy did not show any significant ulcers in the right upper quadrant. He needs colonoscopy for further evaluation.
[2021-07-15] MEDS ORDERED: Lactated Ringers 1,000 ML IV SCH (11:00)
[2021-07-15] MEDS ORDERED: DIPRIVAN 200 MG/20 ML IV ONE ×2 (11:41→12:06)
[2021-07-15] MEDS ORDERED: Versed 2 MG/2 ML Injection ONE (11:41)
[2021-07-15 12:47] VITALS: PULSE 100
[2021-07-15 13:08] VITALS: O2SAT 85
[2021-07-15 13:10] VITALS: BP 123/94
--- NOTE | 2021-07-16 08:02 | OP ---
SURGERY DATE/TIME: 07/15/2021 1140 PREOPERATIVE DIAGNOSIS: History of some right-sided abdominal aches and pains. No history of prior upper endoscopy. History of normal gallbladder ultrasound and HIDA scan. POSTOPERATIVE DIAGNOSES: 1) Fair bowel prep. 2) Polyps transverse colon and rectum. 3) Small diverticula left colon. 4) ASA Class II. 5) Withdrawal time approximately 10 minutes. PROCEDURES: 1) Colonoscopy to terminal ileum. 2) Retrograde ileoscopy. 3) Random biopsies ileum to evaluate for microscopic ileitis. 4) Random cold biopsies of colon to evaluate for microscopic colitis. 5) Hot snare polypectomy transverse colon polyp. 6) Hot biopsy polypectomy two additional transverse colon polyps. 7) Hot biopsy polypectomy small early polyps versus hyperplastic lesions rectum x2. SURGEON: Dr. Mick Ortiz. ANESTHESIA: MAC. ESTIMATED BLOOD LOSS: Minimal. INDICATIONS: As noted above. Risks and benefits explained in detail but not limited to and consent obtained. DESCRIPTION OF PROCEDURE AND FINDINGS: The patient is taken to the endoscopy room. MAC anesthesia induced. After official time out and no disagreement with planned procedure, digital rectal exam did not reveal any rectal masses. Video colonoscope inserted and passed up through the tortuous sigmoid, descending, transverse and ascending colon. With the external pressure the scope was able to be passed around to the cecum. Appendiceal orifice and valve were well visualized. Scope passed up the terminal ileum. Retrograde ileoscopy performed which was grossly unremarkable but given his symptom complaints of right-sided pain, cold biopsy taken in the ileum to evaluate for microscopic ileitis. The scope is slowly and carefully withdrawn over the next 10 minutes. Random cold biopsies in the right colon to evaluate for microscopic colitis. Otherwise the scope is slowly and carefully withdrawn. Prep was overall was fair with some liquidy semisolid stool slightly limiting exam. A 5 mm polyp removed with hot snare polypectomy in the transverse colon with hot snare and brief bursts of cautery. Good hemostasis was noted. Two other small polyps in transverse colon removed with hot biopsy forceps with brief bursts of cautery. Good hemostasis noted. The scope is pulled back to the left colon. A few small diverticula. The scope is pulled back into the rectum. Three small, early polyps versus hyperplastic lesion removed with hot biopsy forceps with brief bursts of cautery. Good hemostasis noted. The patient tolerated the procedure well. I will see if he has any family to discuss the findings with otherwise I will see him back in the office in the next week or two to go over the results.
== END 2021-07-15 13:25 | disposition home or self-care (01) ==
LOC: SDC 09:55
PROVIDERS: ATTEND Surgery
DX: D12.3 Benign neoplasm of transverse colon (principal); D12.8 Benign neoplasm of rectum; K21.9 Gastro-esophageal reflux disease without esophagitis; K52.9 Noninfective gastroenteritis and colitis, unspecified; K57.30 Diverticulosis of large intestine without perforation or abscess without bleeding; Z79.899 Other long term (current) drug therapy
CPT/HCPCS: J2250; J2704

== ENCOUNTER 2021-12-09 11:06 | Emergency (ER) | payer MEDICARE ==
[2021-12-09 11:18] VITALS: BP 123/89; PULSE 102; O2SAT 95
[2021-12-09] MEDS ORDERED: TORAdol 30 mg Injection IM ONE (11:50)
[2021-12-09] MEDS ORDERED: Augmentin 875-125 Tablet PO ONE (11:52)
[2021-12-09] MEDS ORDERED: TORAdol 30 mg Injection ONE (12:02)
[2021-12-09] MEDS ORDERED: Augmentin 875-125 Tablet ONE (12:03)
--- NOTE | 2021-12-09 12:12 | ERPHSYRPT ---
- History of Present Illness Time Seen by Provider: 12/09/21 11:22 Source: patient Exam Limitations: no limitations Patient Subjective Stated Complaint: Pt complains of bottom right gum pain, pt does not have any teeth Triage Nursing Assessment: Pt brought to the ER by his mother, tachycardic, rates mouth pain as 8/10, has dentures but unable to wear due to the pain, pain began last night, no other complaints at this time Physician History: 45-year-old presented in the ER with chief complaint of pain right lower jaw molar area/throat since yesterday moderate intensity sharp and more with swallowing and movements with some swelling of glands. No fever or chills reported. Timing/Duration: gradual onset Severity: moderate ENT Location: mouth, throat Prearrival Treatment: over the counter meds Associated Symptoms: poor solids intake, swollen glands, sore throat Allergies/Adverse Reactions: No Known Drug Allergies Allergy (Verified 12/09/21 11:18) Home Medications: Esomeprazole Magnesium [Nexium] 40 mg PO DAILY 04/02/21 [History] Hx Tetanus, Diphtheria Vaccination/Date Given: No Hx Influenza Vaccination/Date Given: No Hx Pneumococcal Vaccination/Date Given: No Travel Risk - International Travel Have you traveled outside of the country in past 3 weeks: No - Coronavirus Screening Are you exhibiting any of the following symptoms?: No - Vaccine Status Have you recieved a Covid-19 vaccination: No - Review of Systems Constitutional: No Symptoms Eyes: No Symptoms Ears, Nose, & Throat: Mouth Pain, Mouth Swelling, Throat Swelling, Painful Swallowing Respiratory: No Symptoms Cardiac: No Symptoms Abdominal/Gastrointestinal: No Symptoms Genitourinary Symptoms: No Symptoms Skin: No Symptoms Neurological: No Symptoms Hematologic/Lymphatic: No Symptoms Immunological/Allergic: No Symptoms - Past Medical History Pertinent Past Medical History: Yes Neurological History: No Pertinent History ENT History: No Pertinent History Cardiac History: No Pertinent History Respiratory History: Asthma, COPD Endocrine Medical History: No Pertinent History Musculoskeletal History: Other GI Medical History: GERD History: Other Psycho-Social History: No Pertinent History Male Reproductive Disorders: No Pertinent History Other Medical History: 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 Hip surgery at an . Pinched nerves in lower back. - Past Surgical History Past Surgical History: Yes Neuro Surgical History: No Pertinent History Cardiac: No Pertinent History Respiratory: No Pertinent History Gastrointestinal: No Pertinent History Genitourinary: Other Musculoskeletal: Orthopedic Surgery Male Surgical History: No Pertinent History Other Surgical History: bladder was on outside of body at , pt states, "I've had 37 surgeries on it". Hip surgery as an - Social History Smoking Status: Current every day smoker How long have you smoked: 30 Exposure to second hand smoke: Yes Alcohol Use: Socially Drug Use: marijuana Patient Lives Alone: No Significant Family History: no pertinent family hx - Nursing Vital Signs Nursing Vital Signs: Initial Vital Signs Temperature 97.3 F 12/09/21 11:10 Pulse Rate 102 H 12/09/21 11:10 Blood Pressure 123/89 12/09/21 11:10 O2 Sat by Pulse Oximetry 95 12/09/21 11:10 Pain Scale Pain Intensity 8 - Physical Exam General Appearance: no apparent distress, alert Eye Exam: bilateral eye: normal inspection, PERRL, EOMI Ear Exam: bilateral ear: auricle normal, canal normal, TM normal Nasal Exam: normal inspection Throat Exam: moist mucus membranes, pharynx swelling, pharynx tenderness, uvula swelling Neck Exam: normal inspection, supple, full range of motion, lymphadenopathy (R) Cardiovascular/Respiratory Exam: normal breath sounds, regular rate/rhythm Neurologic Exam: alert, oriented x 3, cooperative, photography editor II-XII nml as tested Skin Exam: normal color SpO2 Interpretation: normal SpO2: 95 O2 Delivery: Room Air Ordered Tests: Medication Summary Discontinued Medications Generic Name Dose Route Start Last Admin Trade Name Mattq PRN Reason Stop Dose Admin Amoxicillin/Clavulanate Potassium 875 mg 12/09/21 11:52 12/09/21 12:05 Amox Tr/Potassium Clavulanate 875 Mg Tablet PO 12/09/21 11:53 875 mg STAT ONE Administration Amoxicillin/Clavulanate Potassium Confirm 12/09/21 12:03 Amox Tr/Potassium Clavulanate 875 Mg Tablet Administered 12/09/21 12:04 Dose 875 mg .ROUTE .STK-MED ONE Ketorolac Tromethamine 30 mg 12/09/21 11:50 12/09/21 12:05 Ketorolac Tromethamine 30 Mg/Ml Inj IM 12/09/21 11:51 30 mg STAT ONE Administration Ketorolac Tromethamine Confirm 12/09/21 12:02 Ketorolac Tromethamine 30 Mg/Ml Inj Administered 12/09/21 12:03 Dose 30 mg .ROUTE .STK-MED ONE - Progress Progress: pain not gone completely Progress Note: 12/09/21 12:11 Is given Toradol for symptomatic relief. Patient has pharyngitis, started on Augmentin. Outpatient follow-up recommended. Counseled pt/family regarding: lab results, diagnosis, need for follow-up - Departure Departure Disposition: Home Clinical Impression: Acute pharyngitis Condition: Stable Critical Care Time: No Referrals: BENNETT PATTERSON DO [Primary Care Provider] - Follow Up with PCP/3 days Instructions: Sore Throat, Adult (DC) Additional Instructions: Take Tylenol/ibuprofen as needed. Drink plenty of fluids. Follow-up with [facility] for reevaluation. Return to ER for any worsening pain, difficulty swallowing/breathing etc. Prescriptions: Amox Tr/Potass Clav. 875 mg [Augmentin 875-125 Tablet] 875 mg PO BID #19 tablet
== END 2021-12-09 12:40 | disposition home or self-care (01) ==
LOC: ED 11:06
DX: J02.9 Acute pharyngitis, unspecified (principal); R68.84 Jaw pain; J44.9 Chronic obstructive pulmonary disease, unspecified; Z72.0 Tobacco use
CPT/HCPCS: 87651; 96372; 99284; J1885; A9270-GY

== ENCOUNTER 2023-02-11 09:05 | Day surgery (SDC) | payer MEDICARE ==
[2013-02-26 02:23] VITALS: BP 100/50
[2023-02-11] MEDS ORDERED: Sodium Chloride 0.9(Preservative Free) 10 ML IJ ONE (09:06)
[2023-02-11] MEDS ORDERED: Depo-Medrol 40 MG/ML IM ONE (09:06)
[2023-02-11] MEDS ORDERED: DIPRIVAN 200 MG/20 ML IV ONE (10:51)
[2023-02-11] MEDS ORDERED: Lactated Ringers 1,000 ML IV ONE (11:16)
--- NOTE | 2023-02-11 11:33 | XRAY ---
Indication: Right L4-S1 transforaminal HONEY. Intraoperative fluoroscopy provided for 19 seconds. 4 digital spot image submitted for interpretation demonstrates posterior needle tips projecting over the expected right L4 and L5 nerve roots. Small amount of contrast injected for needle tip placement. Correlate with intraoperative findings/report.
--- NOTE | 2023-02-11 11:59 | XRAY ---
19 seconds of fluoroscopy was used in surgery for a right L4-S1 transforaminal HONEY.
== END 2023-02-11 11:18 | disposition home or self-care (01) ==
LOC: SDC-PAIN 09:05
PROVIDERS: ATTEND Psychiatry & Neurology Pain Medicine
DX: M54.16 Radiculopathy, lumbar region (principal); Z79.899 Other long term (current) drug therapy
CPT/HCPCS: 64483; 64484; 72100; 77003; J1030; J2704; Q9966

== ENCOUNTER 2023-08-26 13:09 | Emergency (ER) | payer MEDICARE ==
[2013-02-26 02:23] VITALS: BP 100/50
== END 2023-08-26 13:59 | disposition left against medical advice (07) ==
LOC: ED 13:09
DX: Z53.21 Procedure and treatment not carried out due to patient leaving prior to being seen by health care provider (principal)
CPT/HCPCS: 99281

== ENCOUNTER 2023-09-19 15:10 | Emergency (ER) | payer MEDICARE ==
[2023-09-19 15:31] VITALS: RESP 20
[2023-09-19] MEDS ORDERED: TORAdol 30 mg Injection ONE ×2 (16:00→16:01)
[2023-09-19] MEDS: TORAdol 30 mg Injection IM ONE (16:01)
--- NOTE | 2023-09-19 16:06 | ERPHSYRPT ---
- History of Present Illness Time Seen by Provider: 09/19/23 16:05 Source: patient Exam Limitations: no limitations Patient Subjective Stated Complaint: Pt states "I have had right rib pain for years and I have been to my family dr and I have been to pain management and th ey think it might be my gall bladder or something internal and I want a cat scan or something so I can get to the bottom of this today." Triage Nursing Assessment: Pt presented alert and oriented X 3, skin pwd. PT ambulates with an upright steady gait, able to speak in clear full sentences. PT holding his right side. Physician History: Pt states "I have had right rib pain for years and I have been to my family dr and I have been to pain management and they think it might be my gall bladder or something internal and I want a cat scan or something so I can get to the bottom of this today." Timing/Duration: week(s) Severity: moderate Associated Symptoms: denies symptoms Allergies/Adverse Reactions: No Known Drug Allergies Allergy (Verified 12/09/21 11:18) Home Medications: Albuterol Sulfate [Albuterol Sulfate Hfa] 8.5 gm IH DAILY 09/19/23 [History] Famotidine [Pepcid] 40 mg PO DAILY 09/19/23 [History] Gabapentin [Neurontin] 800 mg PO QID 09/19/23 [History] Hx Tetanus, Diphtheria Vaccination/Date Given: No Hx Influenza Vaccination/Date Given: No Hx Pneumococcal Vaccination/Date Given: No Immunizations Up to Date: No Travel Risk - International Travel Have you traveled outside of the country in past 3 weeks: No - Coronavirus Screening Are you exhibiting any of the following symptoms?: No Close contact with a COVID-19 positive Pt in past 14-21 Days: No - Vaccine Status Have you recieved a Covid-19 vaccination: No - Review of Systems Constitutional: No Fever, No Chills Eyes: No Symptoms Ears, Nose, & Throat: No Symptoms Respiratory: No Cough, No Dyspnea Cardiac: Chest Pain (right side chest wall pain), No Edema, No Syncope Abdominal/Gastrointestinal: No Abdominal Pain, No Nausea, No Vomiting, No Diarrhea Genitourinary Symptoms: No Dysuria Musculoskeletal: No Back Pain, No Neck Pain Skin: No Rash Neurological: No Dizziness, No Focal Weakness, No Sensory Changes Psychological: No Symptoms Endocrine: No Symptoms All Other Systems: Reviewed and Negative - Past Medical History Pertinent Past Medical History: Yes Neurological History: No Pertinent History ENT History: No Pertinent History Cardiac History: No Pertinent History Respiratory History: Asthma, COPD Endocrine Medical History: No Pertinent History Musculoskeletal History: Other GI Medical History: GERD History: Other Psycho-Social History: No Pertinent History Male Reproductive Disorders: No Pertinent History Other Medical History: 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 Hip surgery at an . Pinched nerves in lower back. - Past Surgical History Past Surgical History: Yes Neuro Surgical History: No Pertinent History Cardiac: No Pertinent History Respiratory: No Pertinent History Gastrointestinal: No Pertinent History Genitourinary: Other Musculoskeletal: Orthopedic Surgery Male Surgical History: No Pertinent History Other Surgical History: bladder was on outside of body at , pt states, "I've had 37 surgeries on it". Hip surgery as an - Social History Smoking Status: Current every day smoker How long have you smoked: 30 Exposure to second hand smoke: Yes Alcohol Use: Socially Drug Use: marijuana Patient Lives Alone: No Significant Family History: no pertinent family hx - Nursing Vital Signs Nursing Vital Signs: Initial Vital Signs Temperature 98.0 F 09/19/23 15:15 Pulse Rate 80 09/19/23 15:15 Respiratory Rate 20 09/19/23 15:15 Blood Pressure 139/96 09/19/23 15:15 O2 Sat by Pulse Oximetry 98 09/19/23 15:15 Pain Scale Pain Intensity 0 - Physical Exam General Appearance: no apparent distress, alert Eye Exam: PERRL/EOMI, eyes nml inspection Ears, Nose, Throat Exam: normal ENT inspection, TMs normal, pharynx normal, moist mucous membranes Neck Exam: normal inspection, non-tender, supple, full range of motion Respiratory Exam: normal breath sounds, lungs clear, No respiratory distress Cardiovascular Exam: regular rate/rhythm, normal heart sounds, normal peripheral pulses Gastrointestinal/Abdomen Exam: soft, normal bowel sounds, No tenderness, No mass Back Exam: normal inspection, normal range of motion, No CVA tenderness, No julio tebral tenderness Extremity Exam: normal inspection, normal range of motion, pelvis stable Neurologic Exam: alert, oriented x 3, cooperative, normal mood/affect, nml cerebellar function, nml station & gait, sensation nml, No motor deficits Skin Exam: normal color, warm, dry, No rash Lymphatic Exam: No adenopathy SpO2: 98 - Course Nursing assessment & vital signs reviewed: Yes EKG Interpreted by Me: Sinus Rhythm Ordered Tests: Active Orders 24 hr Category Date Time Status CHEST WITH CONTRAST [CT] Stat Exams 09/19/23 15:51 Completed CHEST WITHOUT CONTRAST [CT] Stat Exams 09/19/23 15:51 Completed CBC W DIFF Stat Lab 09/19/23 16:05 Completed CMP Stat Lab 09/19/23 16:05 Completed Manual Differential NC Stat Lab 09/19/23 16:05 Completed Medication Summary Discontinued Medications Generic Name Dose Route Start Last Admin Trade Name Mattq PRN Reason Stop Dose Admin Ketorolac Tromethamine 60 mg 09/19/23 15:50 09/19/23 16:01 Ketorolac Tromethamine 30 Mg/Ml Inj IM 09/19/23 15:51 60 mg STAT ONE Administration Ketorolac Tromethamine Confirm 09/19/23 16:00 Ketorolac Tromethamine 30 Mg/Ml Inj Administered 09/19/23 16:01 Dose 30 mg .ROUTE .STK-MED ONE Ketorolac Tromethamine Confirm 09/19/23 16:01 Ketorolac Tromethamine 30 Mg/Ml Inj Administered 09/19/23 16:02 Dose 30 mg .ROUTE .STK-MED ONE Lab/Rad Data: Laboratory Result Diagrams 09/19/23 16:05 09/19/23 16:05 Laboratory Results 09/19/23 09/19/23 Range/Units 16:05 16:05 WBC 9.9 (4.0-10.5) x10^3/uL RBC 5.73 H (4.1-5.6) x10^6/uL Hgb 17.8 (12.5-18.0) g/dL Hct 53.0 H (42-50) % MCV 92.5 (78-100) fL MCH 31.1 (26-32) pg MCHC 33.6 (32-36) g/dL RDW 12.8 (11.5-14.0) % Plt Count 313 (150-450) x10^3/uL MPV 9.6 (7.5-11.0) fL Sodium 141 (135-145) mmol/L Potassium 4.0 (3.5-5.1) mmol/L Chloride 106 (98-107) mmol/L Carbon Dioxide 25 (22-30) mmol/L Anion Gap 14.4 (5-15) MEQ/L BUN 13 (9-20) mg/dL Creatinine 1.20 (0.66-1.25) mg/dL Estimated GFR 75.1 ML/MIN Glucose 109 H (74-106) mg/dL Calcium 9.5 (8.4-10.2) mg/dL Total Bilirubin 0.40 (0.2-1.3) mg/dL AST 27 (17-59) U/L ALT 45 (0-50) U/L Alkaline Phosphatase 108 (38-126) U/L Serum Total Protein 8.0 (6.3-8.2) g/dL Albumin 4.6 (3.5-5.0) g/dL CT/CHEST WITH CONTRAST CLINICAL HISTORY: right side recurrent chest pain TECHNIQUE: Contiguous axial CT images of the chest were acquired with the administration of intravenous contrast to visualize the pulmonary arteries and its branches. Coronal and sagittal reconstructions were obtained. DLP 917.48 mGy*cm. COMPARISON: None. FINDINGS: The main, right and left pulmonary arteries as well as lobar and segmental branches appear of normal caliber without evidence of sizable any filling defect. No evidence of pulmonary arterial thrombosis was identified. The ascending and descending thoracic aorta, aortic arch and its major branches are of normal caliber with no aneurysmal dilatation or dissecting intimal flaps. The scanned pulmonary parenchyma shows bilateral upper lobe faint ground glass patches. A small right anterior oblique fissure nodule is seen measuring approximately 5 mm (image 30(30/65). Another 4.9 mm nodule is seen at the right upper lobe anterior/posterior segment. No free or encysted pleural effusion. Heart size is normal, and there is no pericardial effusion. No mediastinal, and hilar lymph nodes was identified. There is no definite mass lesion in the chest wall. No significant bony abnormalities were noted. IMPRESSION: 1. No definite evidence of pulmonary embolism. 2. No thoracic aorta aneurysmal dilatation or intimal dissection. 3. Small bilateral upper lobe faint ground glass patches, for clinical correlation and follow-up. 4. A small right anterior oblique fissure nodule measuring approximately 5 mm and a right upper lobe nodule measuring 4.9 mm. Recommendations according to Fleischner guidelines- low-risk patients: no routine follow-up required; high-risk patients: optional CT at 12 months. - Progress Progress: improved, pain not gone completely Counseled pt/family regarding: lab results, diagnosis, need for follow-up, rad results - Departure Departure Disposition: Home Clinical Impression: Rib pain on right side Condition: Stable Critical Care Time: No Referrals: ABHI MANLEY MD [Primary Care Provider] - Follow up/PCP as directed Instructions: Bruised Rib Additional Instructions: Discharge/Care Plan JACOBY PETERSON was seen on 09/19/23 in the Emergency Room. The patient was counseled regarding Diagnosis,Lab results, Imaging studies, need for follow up and when to return to the Emergency Room. Prescriptions given: Discharge Note I have spoken with the patient and/or caregivers. I have explained the patient's condition, diagnosis and treatment plan based on the information available to me at this time. I have answered the patient's and/or caregiver's questions and addressed any concerns. The patient and/or caregivers have as good understanding of the patient's diagnosis, condition and treatment plan as can be expected at this point. The vital signs have been stable. The patient's condition is stable and appropriate for discharge from the emergency department. The patient will pursue further outpatient evaluation with the primary care physician or other designated or consulting physician as outlined in the discharge instructions. The patient and/or caregivers are agreeable to this plan of care and follow-up instructions have been explained in detail. The patient and/or caregivers have received these instruction. The patient/and or caregivers are aware that any significant change in condition or worsening of symptoms should prompt an immediate return to this or the closest emergency department or call 911. JACOBY PETERSON was seen on 09/19/23 n the Emergency Room. At that time you were treated for an emergent condition, during your visit Laboratory, Radiology and/or other procedures may have been ordered. It is very important that you follow-up with your Primary Care Physician ABHI MANLEY within the next 24-48 hours to review your Emergency Room visit and the final results of testing that was ordered. Some test results such as Urine Cultures, Blood Cultures, and other cultures if ordered will not be finalized for 24-48 hours. If you do not have a Primary Care Provider please call the medical records department at [phone] ext [phone] to obtain a copy of your results or you may sign into our patient portal to obtain these results by visiting us @ [email or web address] and completing the following steps: 1. Click on the Patient Portal link 2. Click the Patient Self Enrollment Link to complete the enrollment form and entering your 3. Once the enrollment form is completed you will receive an email with a temporary ID and password at the email address you provided. 4. Next choose a user name and password. Your user name must be at least 4 characters long and your password must be at least 4 characters long. 5. Choose a security question from the list and provide your answer to the question. If you already have signed into the Health Portal you may access your Health Care Information 02/02 by the following steps: 1. Login to our website @ [email or web address] 2. Enter your original user name and password. FAQS The [facility] Health Portal is an online tool that contains your Lab Results, Radiology Reports, Visit History, Discharge Instructions and Health Summary Lab and Radiology Results will not be available for 72 hours on the portal. The Portal is a secure site, passwords are encryted and URLs are re-written so they cannot be copied and pasted. You and authorized family members are the only ones who can access your Portal. Also there is a timeout feature that protects your information if you leave the Portal page open. If you have technical difficulty please use the Contact Us link on the page this will allow you to submit any questions you have regarding the Portal or you may contact the Medical Record Department at [phone] ext [phone].
[2023-09-19 16:07] LABS: Hemoglobin 17.8 g/dL (12.5-18.0); Mean Cell Volume 92.5 fL (78-100); Mean Corpuscular Hemoglobin 31.1 pg (26-32); Mean Corpuscular Hgb Concent. 33.6 g/dL (32-36); Mean Platelet Volume 9.6 fL (7.5-11.0); Platelet Count 313 x10^3/uL (150-450); Red Blood Count 5.73 x10^6/uL (4.1-5.6); Red Cell Distribution Width 12.8 % (11.5-14.0); White Blood Count 9.9 x10^3/uL (4.0-10.5)
[2023-09-19 16:46] LABS: ALBUMIN 4.6 g/dL (3.5-5.0); ANION GAP 14.4 MEQ/L (5-15); BILIRUBIN,TOTAL 0.4 mg/dL (0.2-1.3); Calcium 9.5 mg/dL (8.4-10.2); Creatinine 1 1.2 mg/dL (0.66-1.25); EST GLOMERULAR FILTRATION RATE 75.1 ML/MIN
--- NOTE | 2023-09-19 17:26 | XRAY ---
CLINICAL HISTORY: right side recurrent chest pain TECHNIQUE: Contiguous axial CT images of the chest were acquired with the administration of intravenous contrast to visualize the pulmonary arteries and its branches. Coronal and sagittal reconstructions were obtained. DLP 917.48 mGy*cm. COMPARISON: None. FINDINGS: The main, right and left pulmonary arteries as well as lobar and segmental branches appear of normal caliber without evidence of sizable any filling defect. No evidence of pulmonary arterial thrombosis was identified. The ascending and descending thoracic aorta, aortic arch and its major branches are of normal caliber with no aneurysmal dilatation or dissecting intimal flaps. The scanned pulmonary parenchyma shows bilateral upper lobe faint ground glass patches. A small right anterior oblique fissure nodule is seen measuring approximately 5 mm (image 30(30/65). Another 4.9 mm nodule is seen at the right upper lobe anterior/posterior segment. No free or encysted pleural effusion. Heart size is normal, and there is no pericardial effusion. No mediastinal, and hilar lymph nodes was identified. There is no definite mass lesion in the chest wall. No significant bony abnormalities were noted. IMPRESSION: 1. No definite evidence of pulmonary embolism. 2. No thoracic aorta aneurysmal dilatation or intimal dissection. 3. Small bilateral upper lobe faint ground glass patches, for clinical correlation and follow-up. 4. A small right anterior oblique fissure nodule measuring approximately 5 mm and a right upper lobe nodule measuring 4.9 mm. Recommendations according to Fleischner guidelines- low-risk patients: no routine follow-up required; high-risk patients: optional CT at 12 months. Electronically Signed by: Veronica France MD. (09/19/2023 17:22:45 EST)
--- NOTE | 2023-09-19 17:31 | XRAY ---
CLINICAL HISTORY: right side recurrent chest pain TECHNIQUE: Contiguous axial CT images of the chest were acquired without intravenous contrast. Coronal and sagittal reconstructions were obtained. CTDI 13.14 mGy, DLP: 917.48 mGy*cm. COMPARISON: None. FINDINGS: The scanned pulmonary parenchyma shows no definite consolidation or collapse. Small bilateral upper lobe faint ground glass patches. A small right anterior oblique fissure nodule is seen measuring approximately 5 mm (image 35 (35/72). Another 4.9 mm nodule is seen at the right upper lobe anterior/posterior segment. No free or encysted pleural effusion. Heart size is normal and there is no pericardial effusion. Coronary vascular calcifications are seen. Aortic arch intimal calcifications are seen. An azygos lobe fissure is noted. No pathologically enlarged mediastinal, hilar or axillary lymph node could be seen. Patent tracheobronchial tree. There is no definite mass lesion in the chest wall. The rest of the scanned upper abdomen is unremarkable. IMPRESSION: 1. Small bilateral upper lobe faint ground glass patches, for clinical correlation and follow-up. 2. A small right anterior oblique fissure nodule measuring approximately 5 mm and a right upper lobe nodule measuring 4.9 mm. Recommendations according to Fleischner guidelines- low-risk patients: no routine follow-up required; high-risk patients: optional CT at 12 months Electronically Signed by: Veronica France MD. (09/19/2023 17:26:16 EST)
[2023-09-19 17:41] VITALS: O2SAT 98
[2023-09-19 18:01] VITALS: BP 134/90; PULSE 97; TEMP 97.8
[2023-09-19 19:56] LABS: Lymphocytes 31 % (24-44); Monocyte 8 % (0.0-12.0); Neutrophils 61 % (36.-66.); Platelet Estimate NORMAL (NORMAL); Total Cells Counted 100
== END 2023-09-19 18:07 | disposition home or self-care (01) ==
LOC: ED 15:10
DX: R07.81 Pleurodynia (principal); F17.200 Nicotine dependence, unspecified, uncomplicated; Z20.828 Contact with and (suspected) exposure to other viral communicable diseases; Z79.899 Other long term (current) drug therapy
CPT/HCPCS: 36000; 36415; 71250; 71260; 80053; 85025; 96372; 99284; J1885